=== PATIENT | male | born 1995 | race Caucasian/White ===

== ENCOUNTER 2017-04-11 13:14 | Emergency (ER) | payer OTHER ==
[~2017-04-11] VITALS: Ht 175.3 cm; Wt 85.2 kg
[2017-04-11 14:27] VITALS: BP 129/80
[2017-04-11] MEDS ORDERED: KETOROLAC 30 MG/1 ML IM ONE (15:00)
[2017-04-11] MEDS ORDERED: CEFTRIAXONE 250 MG IM ONE (15:00)
[2017-04-11] MEDS ORDERED: AZITHROMYCIN 500 MG TABLET PO ONE (15:00)
[2017-04-11] MEDS ORDERED: KETOROLAC 30 MG/1 ML ONE (15:08)
[2017-04-11] MEDS ORDERED: AZITHROMYCIN 250 MG TABLET ONE (15:08)
[2017-04-11] MEDS ORDERED: CEFTRIAXONE 250 MG ONE (15:08)
== END 2017-04-11 17:04 | disposition home or self-care (01) ==
LOC: ED 14:42
DX: N45.3 Epididymo-orchitis (principal); F17.200 Nicotine dependence, unspecified, uncomplicated
CPT/HCPCS: 76870; 81001; 87086; 87491; 87591; 93975; 96372; 99285; J0696; J1885